=== PATIENT | female | born 1950 | race Caucasian/White ===

== ENCOUNTER 2022-12-11 16:14 | Emergency (ER) | payer MEDICARE, SELFPAY ==
--- NOTE | ~2022-12-11 | XR_ITS ---
EXAMINATION: CR CHEST CLINICAL INFORMATION: Chest pain. COMPARISON: None available. TECHNIQUE: AP upright and lateral views of the chest were obtained. FINDINGS: EKG leads overlie the chest. The cardiomediastinal silhouette is enlarged. Lungs bilaterally are symmetrically expanded and clear. No focal consolidation, effusion or pneumothorax is seen. Bony structures are unremarkable. Right upper quadrant shakeel and place from prior cholecystectomy. XR/XR chest 2V IMPRESSION: Enlarged cardiomediastinal silhouette. No acute pulmonary process.
--- NOTE | ~2022-12-11 | CT_ITS ---
EXAMINATION: CT HEAD WITHOUT CONTRAST CLINICAL INFORMATION: New visual hallucinations. Headache. COMPARISON: None available. TECHNIQUE: Contiguous axial imaging was performed from the skull base to vertex without intravenous administration of contrast. This CT examination was performed using dose optimization techniques as appropriate, variously including the following: *Automated exposure control *Adjustment of mA and/or kV according to patient size (this includes techniques or standardized protocols for targeted exams where dose is matched to indication/reason for exam; i.e. extremities or head) *Use of iterative reconstruction technique DLP: 630 mGy-cm FINDINGS: There is no evidence of acute intracranial hemorrhage or territorial infarction. No abnormal mass-effect or midline shift is seen. Patterson to white matter differentiation is well preserved. No extra-axial fluid collections are identified. The ventricles and sulci are mildly enlarged. There is mild periventricular and deep white matter low-attenuation seen, consistent with ischemic small vessel disease. There is no abnormal attenuation within the brain parenchyma. The osseous structures and soft tissues are normal. The patient is status post bilateral ocular lens extractions and lens replacements. Atherosclerotic calcifications of the vertebral arteries and carotid siphons noted. The mastoid air cells and visualized portions of the paranasal sinuses are well-aerated. CT/CT head/brain wo IV con IMPRESSION: 1. No acute intracranial pathology. 2. Findings of mild ischemic small vessel disease.
--- NOTE | 2022-12-11 16:21 | ED.GENADULT ---
HPI - General Adult General Chief complaint: Chest Pain Stated complaint: chest [id number],headache,ran out of meds Time Seen by Provider: 12/11/22 16:20 Source: patient and EMS Mode of arrival: EMS Limitations: no limitations History of Present Illness HPI narrative: Patient is a 72 year old assigned female at with a history of anxiety presenting to the emergency department today with chest pain, anxiety, and a headache. Patient states that she is usually on 1mg of Clonazepam twice a day however, she ran out 2 weeks ago. Patient states that she just moved here from [place] and has not been able to get her Clonazepam prescribed here. Patient denies any dizziness, lightheadedness, abdominal pain, nausea, vomiting, fever, chills, blurry vision, double vision, loss of vision, difficulty breathing, shortness of breath, back pain, night sweats, pain with urination, increased urinary frequency, increased urinary urgency, blood in her urine or stool, syncope or a near syncopal episode, recent trauma or falls, bowel incontinence, bladder incontinence, bowel retention, bladder retention, or any other complaints at this time. Onset (ago): day(s) Location: head and chest Severity: mild Severity scale (1-10): 3 Relieving factors: none Exacerbating factors: none Associated symptoms: chest pain Treatments prior to arrival: none Related Data Allergies Allergy/AdvReac Type Severity Reaction Status Date / Time Unable to Assess Allergy Unverified 12/11/22 16:28 Review of Systems Constitutional: Constitutional: Reports no additional constitutional complaints, Denies chills, Denies fever(s), Reports headache(s) and Denies night sweats Eyes: Eyes: Reports no additional eye complaints, Denies blurry vision, Denies change in vision, Denies diplopia, Denies eye discharge, Denies loss of vision and Denies eye pain ENT: Denies dizziness and Reports headache(s) Cardiovascular: Cardiovascular: Reports no additional cardiovascular complaints, Reports chest pain, Denies lightheadedness, Denies Loss of Consciousness and Denies dyspnea Respiratory: Respiratory: Reports no additional respiratory complaints and Denies dyspnea Gastrointestinal: Gastrointestinal: Reports no additional gastrointestinal complaints, Denies abdominal pain, Denies melena, Denies hematochezia, Denies change in bowel habits and Denies change in stool character Genitourinary: Genitourinary: Denies hematuria, Denies urinary frequency, Denies dysuria, Denies urinary incontinence, Denies urinary hesitancy and Denies urinary urgency Musculoskeletal: Musculoskeletal: Reports no additional musculoskeletal complaints, Denies numbness and Denies tingling Neurologic: Denies dizziness, Reports headache(s), Denies loss of vision, Denies numbness and Denies tingling Psychiatric: Psychiatric: Reports no additional psychiatric complaints and Reports anxiety Endocrine: Endocrine: Reports no additional endocrine complaints Hematologic/Lymphatic: Hematologic/Lymphatic: Reports no additional hematologic/lymphatic complaints Allergic/Immunologic: Allergic/Immunologic: Reports no additional allergic/immunologic complaints [facility] Past Medical History Attestation statement: The following information was validated with the patient. Source: old records reviewed and nursing notes reviewed Social History Social History Alcohol intake: former Smoked in Last 30 Days: No Use of substances other than those prescribed or required for medical reasons: No Advance Directives: Yes Advance Directives Information Provided: No Advance Directives on File: No Physical Exam ED Vital Signs: Vital Signs - 24 hr 12/11/22 16:26 12/11/22 16:29 12/11/22 18:39 Temperature 99.4 F 99.4 F 99.0 F Pulse Rate 12 L 78 78 Respiratory Rate 13 13 11 L Blood Pressure 160/76 H 160/76 H 123/68 Pulse Oximetry 95 93 97 Oxygen Delivery Method Room Air Room Air Room Air BMI result Body Mass Index 25.9 Const General: cooperative, no acute distress, alert and awake Nutritional Appearance: well nourished Orientation/consciousness: patient oriented x3 Limitations: no limitations [facility] Head: Yes normal to inspection and Yes atraumatic Ears: hearing grossly normal bilaterally and external ears normal General nose exam: Normal external nose present, no nasal discharge noted and no epistaxis Face and sinus: Yes normal facial exam, No abrasion and No laceration Mouth: Normal oral and palatal mucosa present, no drooling and no muffled voice Eyes General: appearance normal, both eyes and all related structures Periorbital: periorbital findings normal Eyelids: Yes eyelids normal Conjunctivae: conjunctivae normal Pupils: Equal, round and reactive pupils present EOM: EOMs intact bilaterally Neck Neck: Yes normal visual inspection, Yes full ROM and Yes no lymphadenopathy Chest Chest palpation & inspection: normal inspection of the chest Resp Effort & Inspection: normal respiratory effort and able to speak in complete sentences Auscultation: clear to auscultation bilaterally Cardio Rate: regular rate Rhythm: regular rhythm GI Inspection: Yes normal to inspection Palpation (GI): Soft to palpation, not firm, nontender, no guarding and not rigid Neuro General: patient oriented x3 and moves all extremities Cranial nerves: Yes Equal, round and reactive pupils present Cognition (Neuro): normal cognition Motor exam (neuro): 5/5 motor strength present throughout Sensory Exam: Normal double simultaneous stimulation for sensation Coordination: [id number] test normal Extrem General: Yes normal to inspection, Yes full ROM and Yes capillary refill normal Psych Appearance: grossly normal Mental Status: mental status grossly normal Affect: normal affect Attitude: cooperative Thought process: Normal thought process present Thought content: Normal thought content present Insight: Good insight present (Psych) Medications Administered Discontinued Medications Generic Name Dose Route Start Last Admin Trade Name Freq PRN Reason Stop Dose Admin Lorazepam 1 mg 12/11/22 16:28 12/11/22 17:00 Lorazepam 1 Mg Tablet PO 12/11/22 16:29 1 mg ONCE ONE Administration Medical Decision Making Medical Decision Making [facility] Narrative: Patient is a 72 year old assigned female at with a history of anxiety presenting to the emergency department today with chest pain, anxiety, and a headache. Patient's physical exam was unremarkable. Patient's blood work was unremarkable. Patient's EKG was unremarkable. Patient's chest x-ray and head CT showed no acute process. I explained my physical exam findings as well as all test results to the patient. I answered all questions asked by the patient. Patient received 1mg of Ativan which she stated helped her symptoms significantly. I stressed the importance of the patient taking her medication as prescribed. I stressed the importance of the patient following up with her primary care provider and a psychiatrist. I stressed the importance of the patient returning to the emergency department immediately if her symptoms were to worsen or if she were to develop any dizziness, shortness of breath, difficulty breathing, chest pain, blurry vision, loss of vision, nausea, vomiting, abdominal pain, fever, chills, back pain, or any other complaints. Patient verbalized agreement and understanding with this treatment plan and discharge. Differential Diagnosis Differential Diagnoses: The differential diagnosis associated with the presentation includes Anxiety STEMI NSTEMI Migraine Cluster headache Tension headache Admission/Observation Consideration of admission/observation: Escalation of care including admission/observation considered Patient would have been admitted to the hospital had her work up had any findings where hospital admission was appropriate and her clinical presentation warranted hospital admission. Lab Data MDM Lab Attestation statement: I reviewed the patient's lab results. My interpretation of these studies and their corresponding values is that they are grossly normal. 12/11/22 16:57 12/11/22 16:57 Labs: Lab Results 12/11/22 12/11/22 12/11/22 Range/Units 16:57 16:57 16:57 WBC 8.5 (4.8-10.8) X10*3/uL RBC 4.14 L (4.20-5.50) X10*6/uL Hgb 12.2 (12.0-16.0) g/dl Hct 35.9 L (37.0-47.0) % MCV 86.7 (80.0-98.0) fL MCH 29.5 (27.0-33.0) pg MCHC 34.0 (31.0-35.0) g/dl RDW 13.4 (11.0-16.0) % Plt Count 88 L (160-400) X10*3/uL MPV 12.6 H (9.4-12.3) fL Immature Gran % (Auto) 0.9 H (0.0-0.4) % Neut % (Auto) 66.9 (45-73) % Lymph % (Auto) 22.4 (20-40) % Ralls % (Auto) 8.1 (2-11) % Eos % (Auto) 1.3 (0-4) % Baso % (Auto) 0.4 (0-2) % Lymph # (Auto) 1.9 (1.2-4.9) X10*3/uL Ralls # (Auto) 0.7 (0.1-1.2) X10*3/uL Eos # (Auto) 0.1 (0.0-0.4) X10*3/uL Baso # (Auto) 0.0 (0.0-0.2) X10*3/uL Abs Immat Gran (auto) 0.08 H (0.00-0.03) X10*3/uL Absolute Neuts (auto) 5.7 (2.0-8.3) x10*3/uL Absolute Nucleated RBC 0.000 (0.0-0.012) X10*3/uL Nucleated RBC % (auto) 0.0 (0.0-0.2) /100WBC Sodium 143 (135-145) mmol/L Potassium 3.3 (3.3-5.1) mmol/L Chloride 106 (96-108) mmol/L Carbon Dioxide 28 (22-29) mmol/L Anion Gap 12 (12-20) BUN 9 (9-16) mg/dL Creatinine 0.78 (0.5-1.4) mg/dL Estim Creat Clear Calc 62.8 Estimated GFR > 60 Random Glucose 114 (60-115) mg/dL Calcium 9.5 (8.4-10.2) mg/dL Magnesium 1.8 (1.6-2.6) mg/dL Total Bilirubin 0.9 (0.0-1.0) mg/dL AST 20 (5-31) U/L ALT 16 (0-31) U/L Alkaline Phosphatase 128 H (39-117) U/L Troponin I High Sens 3.5 (<3.5-17.0) ng/L Total Protein 6.7 (6.5-8.0) g/dL Albumin 3.8 (3.5-5.0) g/dL COVID-19 (ANU) (Negative) COVID-19 Clin Com 12/11/22 12/11/22 Range/Units 16:57 18:39 WBC (4.8-10.8) X10*3/uL RBC (4.20-5.50) X10*6/uL Hgb (12.0-16.0) g/dl Hct (37.0-47.0) % MCV (80.0-98.0) fL MCH (27.0-33.0) pg MCHC (31.0-35.0) g/dl RDW (11.0-16.0) % Plt Count (160-400) X10*3/uL MPV (9.4-12.3) fL Immature Gran % (Auto) (0.0-0.4) % Neut % (Auto) (45-73) % Lymph % (Auto) (20-40) % Ralls % (Auto) (2-11) % Eos % (Auto) (0-4) % Baso % (Auto) (0-2) % Lymph # (Auto) (1.2-4.9) X10*3/uL Ralls # (Auto) (0.1-1.2) X10*3/uL Eos # (Auto) (0.0-0.4) X10*3/uL Baso # (Auto) (0.0-0.2) X10*3/uL Abs Immat Gran (auto) (0.00-0.03) X10*3/uL Absolute Neuts (auto) (2.0-8.3) x10*3/uL Absolute Nucleated RBC (0.0-0.012) X10*3/uL Nucleated RBC % (auto) (0.0-0.2) /100WBC Sodium (135-145) mmol/L Potassium (3.3-5.1) mmol/L Chloride (96-108) mmol/L Carbon Dioxide (22-29) mmol/L Anion Gap (12-20) BUN (9-16) mg/dL Creatinine (0.5-1.4) mg/dL Estim Creat Clear Calc Estimated GFR Random Glucose (60-115) mg/dL Calcium (8.4-10.2) mg/dL Magnesium (1.6-2.6) mg/dL Total Bilirubin (0.0-1.0) mg/dL AST (5-31) U/L ALT (0-31) U/L Alkaline Phosphatase (39-117) U/L Troponin I High Sens 3.3 (<3.5-17.0) ng/L Total Protein (6.5-8.0) g/dL Albumin (3.5-5.0) g/dL COVID-19 (ANU) Negative (Negative) COVID-19 Clin Com See Note Independent Interpretation I performed an independent interpretation of an: EKG, Plain X-Ray and CT Scan Interpretation: My interpretation is in agreement with the radiologist's impression of these imaging studies. EXAMINATION: CT HEAD WITHOUT CONTRAST CLINICAL INFORMATION: New visual hallucinations. Headache.? COMPARISON: None available. TECHNIQUE: Contiguous axial imaging was performed from the skull base to vertex without intravenous administration of contrast. This CT examination was performed using dose optimization techniques as appropriate, variously including the following: *Automated exposure control *Adjustment of mA and/or kV according to patient size (this includes techniques or standardized protocols for targeted exams where dose is matched to indication/reason for exam; i.e. extremities or head) *Use of iterative reconstruction technique DLP: 630 mGy-cm FINDINGS: There is no evidence of acute intracranial hemorrhage or territorial infarction. No abnormal mass-effect or midline shift is seen. Patterson to white matter differentiation is well preserved. No extra-axial fluid collections are identified. The ventricles and sulci are mildly enlarged. There is mild periventricular and deep white matter low-attenuation seen, consistent with ischemic small vessel disease. There is no abnormal attenuation within the brain parenchyma. The osseous structures and soft tissues are normal. The patient is status post bilateral ocular lens extractions and lens replacements. Atherosclerotic calcifications of the vertebral arteries and carotid siphons noted. The mastoid air cells and visualized portions of the paranasal sinuses are well-aerated. CT/CT head/brain wo IV con IMPRESSION: 1.? No acute intracranial pathology. 2.? Findings of mild ischemic small vessel disease. Dictated By: Indy Snyder MD Signed By: Electronically signed by Indy Snyder MD 12/11/22 1707 EXAMINATION: CR CHEST CLINICAL INFORMATION: Chest pain. COMPARISON: None available. TECHNIQUE: AP upright and lateral views of the chest were obtained. FINDINGS: EKG leads overlie the chest. The cardiomediastinal silhouette is enlarged. Lungs bilaterally are symmetrically expanded and clear. No focal consolidation, effusion or pneumothorax is seen. Bony structures are unremarkable. Right upper quadrant shakeel and place from prior cholecystectomy. XR/XR chest 2V IMPRESSION: Enlarged cardiomediastinal silhouette. No acute pulmonary process. Dictated By: Indy Snyder MD Signed By: Electronically signed by Indy Snyder MD 12/11/22 1657 Vent. Rate: 076 BPM ? ? Atrial Rate: 076 BPM P-R Int: 156 ms? QRS Dur: 082 ms QT Int: 404 ms ? ? ? P-R-T Axes: 014 025 058 degrees QTc Int: 454 ms ? Normal sinus rhythm Nonspecific T wave abnormality Abnormal ECG No previous ECGs available ? DD/ [id number] Radiology Impression Discussion of test interpretation with radiology: I have reviewed the radiologist's reading. Independent Historian Clinical information obtained from an independent historian. History obtained from or confirmed by: EMS (EMS provided additional history and confirmed the history provided by the patient.) Chronic Conditions Patient?s care impacted by: Other (anxiety) Scores Heart Score History: -0- slightly suspicious ECG: -0- normal Age: -2- > or = 65 Risk factory: -1- 1 or 2 risk factors Troponin: -0- < or = normal limit Score: 3 Risk: 1.7% Discharge Plan Discharge Clinical Impression: Atypical chest pain, Anxiety Patient Disposition: Home, Self-Care Instructions: Chest Pain (DC), Anxiety (ED) Additional Instructions: Follow up with your primary care provider. Return to the emergency department immediately if your symptoms worsen or if you develop any dizziness, shortness of breath, difficulty breathing, chest pain, blurry vision, loss of vision, nausea, vomiting, abdominal pain, fever, chills, back pain, or any other complaints. [facility] at [facility]: [address] [place] [address] [id number] Walk in hours from 10am - 12pm Open from 10am - 12pm [facility] Crisis Services: [address] [place] [address] Walk in hours from 10am - 12pm Open 13/12 [facility]: [address] [place] [id number] [address] [place] [id number] Hours: M-F 8am to 8pm Tuesday and Tuesday 9am to 5pm Referrals: Shelby Aranda MD [Primary Care Provider] - Interventions: ED Discharge Assessment Last Done: 12/11/22 20:00 Discharge Date/Time: 12/11/22 20:01 Print Language: Namibian
[2022-12-11 16:26] VITALS: BP 147/71; BP 160/76; PULSE 12; RESP 13; TEMP 37.4; O2SAT 95; O2SAT 97; BMI 25.9
--- NOTE | 2022-12-11 16:28 | ECG_ITS ---
Test Reason : CHEST PAIN Blood Pressure : / mmHG Vent. Rate : 076 BPM Atrial Rate : 076 BPM P-R Int : 156 ms QRS Dur : 082 ms QT Int : 404 ms P-R-T Axes : 014 025 058 degrees QTc Int : 454 ms Normal sinus rhythm Nonspecific T wave abnormality Abnormal ECG No previous ECGs available Referred By: Nicky Mahajan Electronically Signed By:Jose Luis Leija
[2022-12-11 16:29] VITALS: BP 147/71; BP 160/76; PULSE 78; PULSE 89; RESP 13; TEMP 37.4; O2SAT 93; O2SAT 97; BMI 25.9
[2022-12-11] MEDS: LORazepam 1 MG TABLET PO (17:00)
[2022-12-11 17:01] LABS: MANUAL DIFF FLAG NO
[2022-12-11 17:15] LABS: Alanine Aminotransferase 16 U/L (0-31); Albumin Level 3.8 g/dL (3.5-5.0); Alkaline Phosphatase 128 U/L (39-117); Anion Gap 12 (12-20); Aspartate Amino Transferase 20 U/L (5-31); Bilirubin Total 0.9 mg/dL (0.0-1.0); Blood Urea Nitrogen 9 mg/dL (9-16); COVID-19 Test Negative (Negative); Calcium 9.5 mg/dL (8.4-10.2); Carbon Dioxide 28 mmol/L (22-29); Chloride 106 mmol/L (96-108); Creatinine Clr Calc Pharmacy 62.8; Estimated Glomerular Filt Rate > 60; Glucose Random 114 mg/dL (60-115); IDNOW Serial# 9DB6401D; Magnesium 1.8 mg/dL (1.6-2.6); Potassium 3.3 mmol/L (3.3-5.1); Sodium 143 mmol/L (135-145); Total Protein 6.7 g/dL (6.5-8.0)
[2022-12-11 17:22] LABS: Troponin-I High Sensitivity 3.5 ng/L (<3.5-17.0)
[2022-12-11 17:24] LABS: Basophils Percent Auto 0.4 % (0-2); Eosinophils Absolute Auto 0.1 X10*3/uL (0.0-0.4); Eosinophils Percent Auto 1.3 % (0-4); Hematocrit 35.9 % (37.0-47.0); Hemoglobin 12.2 g/dl (12.0-16.0); Imm Gran Abs Auto 0.08 X10*3/uL (0.00-0.03); Imm Gran Pct Auto 0.9 % (0.0-0.4); Lymphocytes Absolute Auto 1.9 X10*3/uL (1.2-4.9); Lymphocytes Percent Auto 22.4 % (20-40); Mean Corpuscular Hemoglobin 29.5 pg (27.0-33.0); Mean Corpuscular Volume 86.7 fL (80.0-98.0); Mean Platelet Volume 12.6 fL (9.4-12.3); Monocytes Absolute Auto 0.7 X10*3/uL (0.1-1.2); Monocytes Percent Auto 8.1 % (2-11); Neutrophils Absolute Auto 5.7 x10*3/uL (2.0-8.3); Neutrophils Percent Auto 66.9 % (45-73); Red Blood Count 4.14 X10*6/uL (4.20-5.50); Red Cell Distribution Width 13.4 % (11.0-16.0); White Blood Count 8.5 X10*3/uL (4.8-10.8)
[2022-12-11 17:30] LABS: Platelet Count 88 X10*3/uL (160-400)
[2022-12-11 18:39] VITALS: BP 123/68; PULSE 78; RESP 11; TEMP 37.2; O2SAT 97
[2022-12-11 19:04] LABS: Troponin-I High Sensitivity 3.3 ng/L (<3.5-17.0)
== END 2022-12-11 20:01 | disposition home or self-care (01) ==
PROVIDERS: Physician Assistant Medical; Emergency Provider Emergency Medicine; PCP Family Medicine
DX: R07.89 Other chest pain (principal); R51.9 Headache, unspecified; F41.9 Anxiety disorder, unspecified; R44.1 Visual hallucinations; Z20.822 Contact with and (suspected) exposure to COVID-19
CPT/HCPCS: 36415; 70450; 71046; 80053; 83735; 84484; 85025; 87635; 93005; 99284

== ENCOUNTER → 2022-12-11 16:28 | Outpatient (BNV) | payer MEDICARE, SELFPAY | PROVIDERS: Emergency Provider Emergency Medicine; PCP Family Medicine; Visit Provider Internal Medicine Cardiovascular Disease | DX: R07.9 Chest pain, unspecified (principal) | CPT/HCPCS: 93010 ==

== ENCOUNTER 2023-02-25 13:31 | Outpatient (REF) | payer MEDICARE, SELFPAY ==
--- NOTE | ~2023-02-25 | CT_ITS ---
EXAMINATION: CT ABDOMEN AND PELVIS WITH CONTRAST CLINICAL INFORMATION: Gastroesophageal reflux disease (GERD) with esophagitis and nausea. COMPARISON: None available. TECHNIQUE: Multidetector volumetric images were obtained from the superior aspect of the liver through the pubic symphysis following administration 85 mL of Omnipaque 350 intravenous contrast. Sagittal and coronal reformatted images were obtained on the technologist's workstation. Oral contrast: No This CT examination was performed using dose optimization techniques as appropriate, variously including the following: *Automated exposure control *Adjustment of mA and/or kV according to patient size (this includes techniques or standardized protocols for targeted exams where dose is matched to indication/reason for exam; i.e. extremities or head) *Use of iterative reconstruction technique DLP: 377 mGy-cm FINDINGS: LUNG BASES: The visualized lung bases are unremarkable. LIVER, GALLBLADDER, AND BILIARY TREE: The liver is normal in size, shape, and attenuation. No focal hepatic lesion or biliary ductal dilatation is present. Status post cholecystectomy. PANCREAS: Unremarkable. SPLEEN: Spleen is mildly enlarged at just over 13 cm. ADRENAL GLANDS: Unremarkable. KIDNEYS AND URETERS: The kidneys are normal in size, shape, and attenuation. No hydronephrosis, hydroureter, or calculi seen. No perinephric stranding. BLADDER: There is slight asymmetric bladder wall thickening most prominent anteriorly. GASTROINTESTINAL TRACT: A small hiatal hernia is present. The small and large bowel are unremarkable. The appendix is unremarkable. ABDOMINAL WALL: No significant hernia is appreciated. Tiny periumbilical hernia seen containing only fat. LYMPH NODES: No retroperitoneal lymphadenopathy. VASCULAR: Unremarkable. PELVIC VISCERA: There is a rounded hyperenhancing mass seen in the lower uterine segment measuring about a centimeter in size (3:70 and 8:66) that could be a uterine fibroid. Endovaginal ultrasound for evaluation. OSSEOUS STRUCTURES: There is mild biconvex thoracolumbar scoliosis with [id number] degenerative changes present throughout the spine most marked at L3-L4 and L4-L5. CT/CT abdomen pelvis w IV con IMPRESSION: A cause for the patient's esophagitis and nausea has not been found. A small hiatal hernia is present. Incidental note made of mild splenomegaly, cholecystectomy possible uterine fibroid. Endovaginal ultrasound is recommended for further evaluation. Other incidental findings as described above including slight asymmetric bladder wall thickening. This could be secondary to cystitis. Please correlate with urinalysis. Fleischner guidelines were followed.
[2023-03-02 11:02] LABS: Creatinine POC 0.8 mg/dL (0.5-1.4); GFR POC > 60
== END 2023-02-25 13:32 | disposition home or self-care (01) ==
LOC: HO.CT 13:31
PROVIDERS: PCP Family Medicine; Visit Provider Family Medicine
DX: K21.9 Gastro-esophageal reflux disease without esophagitis (principal); R11.0 Nausea
CPT/HCPCS: 74177; 82565; Q9967

== ENCOUNTER 2023-05-22 13:23 | Emergency (ER) | payer MEDICARE, SELFPAY ==
[2023-05-22 14:27] VITALS: BP 137/78; PULSE 90; RESP 18; TEMP 36.8; O2SAT 97; BMI 23.7
--- NOTE | 2023-05-22 14:29 | ED.DENTAL ---
HPI - Dental/Oral General Chief complaint: General Medical Stated complaint: Oral surgery 1wk ago puss coming from gums Time Seen by Provider: 05/22/23 16:11 Source: patient Mode of arrival: ambulatory Limitations: no limitations History of Present Illness HPI Narrative: Patient is a 73 year old assigned female at with a history of recent dental surgery presenting to the emergency department today with dental swelling, cough, and feeling generally unwell. Patient states that she had 5 teeth extracted with 4 implants placed on 05/06/2023 and since has had swelling and discharge in her mouth. Patient states that she was on one antibiotic but it wasn't working so her dentist switched her to another. Patient states that she is concerned the infection is in her blood because she is feeling more fatigued lately. Patient denies any dizziness, lightheadedness, abdominal pain, nausea, vomiting, fever, chills, blurry vision, double vision, loss of vision, chest pain, difficulty breathing, shortness of breath, back pain, night sweats, pain with urination, increased urinary frequency, increased urinary urgency, blood in her urine or stool, syncope or a near syncopal episode, bowel incontinence, bladder incontinence, bowel retention, bladder retention, or any other complaints at this time. Onset (ago): day(s) Exacerbating factors: nothing Treatment prior to arrival: other (antibiotic) Related Data Allergies Allergy/AdvReac Type Severity Reaction Status Date / Time heparin Allergy Unknown Unknown Verified 05/22/23 14:27 Penicillins Allergy Unknown Unknown Verified 05/22/23 14:27 Review of Systems Constitutional: Constitutional: Reports no additional constitutional complaints, Denies chills, Reports fatigue, Denies fever(s) and Denies night sweats Eyes: Eyes: Reports no additional eye complaints, Denies blurry vision, Denies change in vision, Denies diplopia, Denies eye discharge, Denies loss of vision and Denies eye pain ENT: Denies dizziness and Reports mouth pain Cardiovascular: Cardiovascular: Reports no additional cardiovascular complaints, Denies chest pain, Denies lightheadedness, Denies Loss of Consciousness and Denies dyspnea Respiratory: Respiratory: Reports no additional respiratory complaints and Denies dyspnea Gastrointestinal: Gastrointestinal: Reports no additional gastrointestinal complaints, Denies abdominal pain, Denies melena, Denies hematochezia, Denies change in bowel habits and Denies change in stool character Genitourinary: Genitourinary: Denies hematuria, Denies urinary frequency, Denies dysuria, Denies urinary incontinence, Denies urinary hesitancy and Denies urinary urgency Musculoskeletal: Musculoskeletal: Reports no additional musculoskeletal complaints, Denies numbness and Denies tingling Neurologic: Denies dizziness, Denies loss of vision, Denies numbness and Denies tingling Psychiatric: Psychiatric: Reports no additional psychiatric complaints Endocrine: Endocrine: Reports no additional endocrine complaints and Reports fatigue Hematologic/Lymphatic: Hematologic/Lymphatic: Reports no additional hematologic/lymphatic complaints Allergic/Immunologic: Allergic/Immunologic: Reports no additional allergic/immunologic complaints PMFSH Past Medical History Attestation statement: The following information was validated with the patient. Source: old records reviewed and nursing notes reviewed Social History Social History Alcohol intake: former Advance Directives: No Advance Directives Information Provided: No Physical Exam Vital Signs: Vital Signs: Last Vital Signs Temp 98.3 F 05/22/23 14:27 Pulse 90 05/22/23 14:27 Resp 18 05/22/23 14:27 BP 137/78 05/22/23 14:27 Pulse Ox 97 05/22/23 14:27 O2 Del Method Room Air 05/22/23 14:27 BMI result Body Mass Index 23.7 Const: General: cooperative, no acute distress, alert and awake Nutritional Appearance: well nourished Orientation/consciousness: patient oriented x3 Limitations: no limitations HEENT: Head: Yes normal to inspection and Yes atraumatic Ears: hearing grossly normal bilaterally and external ears normal General nose exam: Normal external nose present, no nasal discharge noted and no epistaxis Face and sinus: Yes normal facial exam, No abrasion and No laceration Mouth: Normal oral and palatal mucosa present, no drooling and no muffled voice Teeth and gingiva: other (multiple missing teeth, open area just above #8 with minimal clear draining) Eyes: General: appearance normal, both eyes and all related structures Periorbital: periorbital findings normal Eyelids: Yes eyelids normal Conjunctivae: conjunctivae normal Pupils: Equal, round and reactive pupils present EOM: EOMs intact bilaterally Neck: Neck: Yes normal visual inspection, Yes full ROM and Yes no lymphadenopathy Chest: Chest palpation & inspection: normal inspection of the chest Resp: Effort & Inspection: normal respiratory effort and able to speak in complete sentences GI: Inspection: Yes normal to inspection Neuro: General: patient oriented x3 and moves all extremities Cranial nerves: Yes Equal, round and reactive pupils present Cognition (Neuro): normal cognition Motor exam (neuro): 5/5 motor strength present throughout Sensory Exam: Normal double simultaneous stimulation for sensation Coordination: [id number] test normal Extrem: General: Yes normal to inspection, Yes full ROM and Yes capillary refill normal Psych: Appearance: grossly normal Mental Status: mental status grossly normal Affect: normal affect Attitude: cooperative Thought process: Normal thought process present Thought content: Normal thought content present Insight: Good insight present (Psych) Course Course Course Narrative: This is a rapid medical exam: Additional HPI, ROS, PE not included below will be deferred to primary provider. Patient is a 73-year-old female with history of T2DM presenting to the ED with complaint of purulent drainage from mouth. Recent significant dental work done on 05/06, had 5 teeth extracted and 4 dental implants placed to upper jaw. Took 7 days of Clindamycin, states developed facial swelling immediately after finishing that course, went back to oral surgeon on Tuesday, and was started on Cipro 500mg BID at that time. Also complains of productive cough. Only using ibuprofen for pain. Today had chills. Plan: labs, cultures Medical Decision Making Medical Decision Making MDM Narrative: Patient is a 73 year old assigned female at with a history of recent dental surgery presenting to the emergency department today with dental pain and feeling fatigued. Patient's physical exam was as noted in the physical exam portion of this note. Patient's previously abscessed area is actively draining clear discharge with no additional fluctance. Patient's blood work showed an elevated ESR at 69 but was otherwise unremarkable. Patient's COVID-19 test was positive. Patient's influenza and RSV tests were negative. I explained my physical exam findings as well as all test results to the patient. I answered all questions asked by the patient. I stressed the importance of the patient taking her medication as prescribed. I stressed the importance of the patient following up with her primary care provider amd her dentist. I stressed the importance of the patient returning to the emergency department immediately if her symptoms were to worsen or if she were to develop any dizziness, shortness of breath, difficulty breathing, chest pain, blurry vision, loss of vision, nausea, vomiting, abdominal pain, fever, chills, back pain, or any other complaints. Patient verbalized agreement and understanding with this treatment plan and discharge. Differential Diagnosis Differential Diagnoses: The differential diagnosis associated with the presentation includes Dental abscess COVID-19 RSV Influenza Admission/Observation Consideration of admission/observation: Escalation of care including admission/observation considered Patient would have been admitted to the hospital had her work up had any findings where hospital admission was appropriate and her clinical presentation warranted hospital admission. Lab Data [facility] Lab Attestation statement: I reviewed the patient's lab results. My interpretation of these results are in the [facility] Rationale portion of this note. 05/22/23 16:00 05/22/23 16:00 Labs: Lab Results 05/22/23 05/22/23 Range/Units 16:00 16:18 WBC 7.0 (4.8-10.8) X10*3/uL RBC 3.99 L (4.20-5.50) X10*6/uL Hgb 12.1 (12.0-16.0) g/dl Hct 35.5 L (37.0-47.0) % MCV 89.0 (80.0-98.0) fL MCH 30.3 (27.0-33.0) pg MCHC 34.1 (31.0-35.0) g/dl RDW 14.0 (11.0-16.0) % Plt Count 170 D (160-400) X10*3/uL MPV 13.2 H (9.4-12.3) fL Immature Gran % (Auto) 0.4 (0.0-0.4) % Neut % (Auto) 77.3 H (45-73) % Lymph % (Auto) 11.8 L (20-40) % [place] % (Auto) 8.3 (2-11) % Eos % (Auto) 1.9 (0-4) % Baso % (Auto) 0.3 (0-2) % Lymph # (Auto) 0.8 L (1.2-4.9) X10*3/uL [place] # (Auto) 0.6 (0.1-1.2) X10*3/uL Eos # (Auto) 0.1 (0.0-0.4) X10*3/uL Baso # (Auto) 0.0 (0.0-0.2) X10*3/uL Abs Immat Gran (auto) 0.03 (0.00-0.03) X10*3/uL Absolute Neuts (auto) 5.4 (2.0-8.3) x10*3/uL Absolute Nucleated RBC 0.000 (0.0-0.012) X10*3/uL Nucleated RBC % (auto) 0.0 (0.0-0.2) /100WBC Smear Tech's Comments VERIFIED ESR 69 H (0-20) MM/HR Sodium 138 (135-145) mmol/L Potassium 3.8 (3.3-5.1) mmol/L Chloride 107 (96-108) mmol/L Carbon Dioxide 22 (22-29) mmol/L Anion Gap 13 (12-20) BUN 21 H (9-16) mg/dL Creatinine 0.84 (0.5-1.4) mg/dL Estim Creat Clear Calc 52.3 Estimated GFR > 60 Random Glucose 106 (60-115) mg/dL Lactic Acid 0.8 (0.5-2.0) mmol/L Calcium 9.5 (8.4-10.2) mg/dL C-Reactive Protein 0.39 (< or = 0.50) mg/dL Influenza Type A (PCR) NEGATIVE (Negative) Influenza Type B (PCR) NEGATIVE (Negative) RSV RNA Qual (PCR) NEGATIVE (Negative) SARS-CoV-2 RNA (RT-PCR) POSITIVE A (Negative) Prescription Management I considered prescription management with: Antiviral (patient is not a paxlovid candidate) and Antibiotic (patient already prescribed appropriate antibiotic by dentist.) Discharge Plan Discharge Clinical Impression: Abscess, dental, COVID-19 Patient Disposition: Home, Self-Care Instructions: Dental Abscess (ED), COVID-19 (Coronavirus Disease 2019) (ED) Additional Instructions: Follow up with your primary care provider and your dentist. Your abscess is draining like it is supposed to. Do NOT swallow what comes out of it. Please continue using the rinse and antibiotic prescribed by your dentist. Return to the emergency department immediately if your symptoms worsen or if you develop any dizziness, shortness of breath, difficulty breathing, chest pain, blurry vision, loss of vision, nausea, vomiting, abdominal pain, fever, chills, back pain, or any other complaints. Referrals: Shelby Aranda MD [Primary Care Provider] - Print Language: Hungarian
[2023-05-22 16:20] LABS: Lactic Acid 0.8 mmol/L (0.5-2.0)
[2023-05-22 16:21] LABS: Basophils Percent Auto 0.3 % (0-2); Hematocrit 35.5 % (37.0-47.0); Imm Gran Abs Auto 0.03 X10*3/uL (0.00-0.03); Imm Gran Pct Auto 0.4 % (0.0-0.4); MANUAL DIFF FLAG SCAN; Red Blood Count 3.99 X10*6/uL (4.20-5.50); SCAN SMEAR FLAG 1
[2023-05-22 16:22] LABS: Eosinophils Absolute Auto 0.1 X10*3/uL (0.0-0.4); Eosinophils Percent Auto 1.9 % (0-4); Hemoglobin 12.1 g/dl (12.0-16.0); Lymphocytes Absolute Auto 0.8 X10*3/uL (1.2-4.9); Lymphocytes Percent Auto 11.8 % (20-40); Mean Corpuscular HGB Conc 34.1 g/dl (31.0-35.0); Mean Corpuscular Hemoglobin 30.3 pg (27.0-33.0); Mean Platelet Volume 13.2 fL (9.4-12.3); Monocytes Absolute Auto 0.6 X10*3/uL (0.1-1.2); Monocytes Percent Auto 8.3 % (2-11); Neutrophils Absolute Auto 5.4 x10*3/uL (2.0-8.3); Neutrophils Percent Auto 77.3 % (45-73); Platelet Count 170 X10*3/uL (160-400)
[2023-05-22 16:23] LABS: Anion Gap 13 (12-20); Blood Urea Nitrogen 21 mg/dL (9-16); C Reactive Protein 0.39 mg/dL (< or = 0.50); Calcium 9.5 mg/dL (8.4-10.2); Carbon Dioxide 22 mmol/L (22-29); Chloride 107 mmol/L (96-108); Creatinine Clr Calc Pharmacy 52.3; Estimated Glomerular Filt Rate > 60; Glucose Random 106 mg/dL (60-115); Potassium 3.8 mmol/L (3.3-5.1); Sodium 138 mmol/L (135-145)
[2023-05-22 16:29] LABS: PLT ABN DIST 1
[2023-05-22 16:42] LABS: SLIDE REVIEW VERIFIED
[2023-05-22 17:09] LABS: Influenza A PCR NEGATIVE (Negative); Influenza B PCR NEGATIVE (Negative); Resp Syncy Virus RNA Qual PCR NEGATIVE (Negative); SARS COV2 PCR INHOUSE POSITIVE (Negative)
[2023-05-22 17:22] LABS: Erythrocyte Sedimentation Rate 69 MM/HR (0-20)
== END 2023-05-22 20:45 | disposition home or self-care (01) ==
PROVIDERS: Registered Nurse Emergency; Emergency Provider Emergency Medicine; PCP Family Medicine
DX: K04.7 Periapical abscess without sinus (principal); U07.1 COVID-19; E11.9 Type 2 diabetes mellitus without complications; Z88.0 Allergy status to penicillin
CPT/HCPCS: 0241U; 36415; 80048; 83605; 85025; 85652; 86140; 87040; 99282; 99283

== ENCOUNTER 2024-07-21 07:33 | Emergency (ER) | payer MEDICARE, SELFPAY ==
--- NOTE | ~2024-07-21 | CT_ITS ---
CLINICAL HISTORY: chest pain, elevated ddimer CT angiography chest with contrast. 3D Postprocessing. Comparison: None Findings: There is no heart strain by CT. There is no evidence of pulmonary embolism. Moderate atherosclerotic disease of the coronary arteries. No mediastinal adenopathy. Mild airway thickening. Mild mosaic attenuation. A few tiny nodules are noted, for example subpleural left lower lobe and left upper lobe both on axial image 58 The visualized upper abdomen is unremarkable. No acute osseous finding. Impression: No evidence of pulmonary embolism or heart strain by CT. Mild airway thickening and regions of air trapping. Correlation for mild bronchitis. There are 2 micro nodules identified, not meeting criteria to warrant follow-up. This document has been electronically signed by: Francisco Peraza MD on 07/21/2024 14:34:11
--- NOTE | ~2024-07-21 | XR_ITS ---
CLINICAL HISTORY: chest pain 1 view chest x-ray Comparison: CR/SR - XR CHEST 2V - 12/11/22 16:54 EDT Findings: No consolidation or effusion. Normal size heart. No acute fracture. IMPRESSION: 1. No acute findings. This document has been electronically signed by: Young Solorzano MD on 07/21/2024 08:47:03
--- NOTE | 2024-07-21 07:36 | ECG_ITS ---
Test Reason : CP Blood Pressure : */* mmHG Vent. Rate : 73 BPM Atrial Rate : 73 BPM P-R Int : 160 ms QRS Dur : 84 ms QT Int : 384 ms P-R-T Axes : -7 45 54 degrees QTcB Int : 423 ms Normal sinus rhythm Nonspecific ST abnormality Abnormal ECG When compared with ECG of 11-Dec-2022 16:39, Nonspecific T wave abnormality, improved in Anterior leads Referred By: Generic ED Physician Electronically Signed By: Jose Luis Leija
[2024-07-21 07:54] VITALS: BP 140/75; PULSE 75; RESP 18; TEMP 36.8; O2SAT 97; BMI 23.3
--- NOTE | 2024-07-21 08:07 | ED_ITS ---
HPI - Chest Pain General Chief Complaint: Chest Pain Stated Complaint: heavy chest feeling Time Seen by Provider: 07/21/24 07:59 Source: patient and family Mode of arrival: ambulatory Limitations: no limitations History of Present Illness ED Provider: BETZAIDA SANCHEZ narrative: 74 yo female with PMH of HLD s/p dental extraction and implants on 07/17 with dentist was on abx unknown name but they took her off due to rash and itching. She notes she woke up around 650am and felt like a child was sitting on her chest. She notes she is feeling better now but at the time it seemed like a lot and she also felt dyspnea. No nausea reported. She denies hx of issues with her heart and no hx of valvular issues. She was initially not started on abx but had facial swelling after so they put her on it along with medrol dosepak. She denies any cough or recent travel. She reports subj fevers the moment she came home. complaint: chest heaviness Onset (ago): day(s) (today 650am) Timing of current episode: now resolved Prior episodes: No Onset: during rest Pain location: substernal Pain radiation: none Quality: heaviness Relieving factors: nothing Exacerbating factors: nothing Context: recent illness and recent surgery Associated symptoms: dyspnea Treatment prior to arrival: none Related Data Allergies Allergy/AdvReac Type Severity Reaction Status Date / Time heparin Allergy Unknown Unknown Verified 07/21/24 07:57 Penicillins Allergy Unknown Unknown Verified 07/21/24 07:57 Review of Systems 2 Review of Systems: Constitutional : No Weight loss, No Fever, No Chills ENT/Mouth : No sore throat, No Rhinorrhea Eyes: No Eye Pain, No Swelling Cardiovascular : pos Chest Pain, pos SOB, no Dyspnea on Exertion, No Orthopnea, No Edema, No Palpitations Respiratory : No Cough, No Sputum Gastrointestinal : no Nausea, No Vomiting, No Diarrhea, No abdominal Pain, No Hematochezia, No Melena Genitourinary : No Dysuria, No Urinary Frequency Musculoskeletal : No joint pain, No Myalgias, No Joint Swelling Skin : No Skin Lesions, No rash Neuro : No Weakness, No Numbness, No Dizziness, No Headache All other systems reviewed and are negative PMFSH Past Medical History Attestation statement: The following information was validated with the patient. Source: old records reviewed Medical History Hyperlipidemia Social History Social History (Updated 07/21/24 @ 09:53 by Sulema Sanches DO) Alcohol intake: former Patient Tobacco Use Status: Tobacco use Unknown Advance Directives: No Advance Directives Information Provided: No Do you have a plan to hurt others: No Plan Physical Exam 2 Vital Signs: Vital Signs: Last Vital Signs Temp 98.3 F 07/21/24 07:54 Pulse 72 07/21/24 11:31 Resp 14 07/21/24 11:31 BP 157/84 H 07/21/24 11:31 Pulse Ox 96 07/21/24 11:31 O2 Del Method Room Air 07/21/24 11:31 BMI result Body Mass Index 23.3 Appearance: Alert. Oriented X3. No acute distress. Eyes: Pupils equal, round and reactive to light. ENT: Pharynx healing areas no facial swelling, slight bruise noted L lower cheek Neck: Normal inspection. Neck supple. CVS: Normal heart rate and rhythm. Pulses normal. Respiratory: No respiratory distress. Breath sounds normal. Abdomen: Soft and nontender. Skin: Skin warm and dry. Normal skin color. Normal skin turgor. Extremities: No lower extremity edema. No calf ttp Neuro: Oriented X 3. No motor deficit. No sensory deficit. CN2-12 intact Course Course Course Narrative: CTA chest PE ordered ddimer over age adjusted limit Reevaluation(s) Reevaluation #1: nonischemic EKG and trop flat x 2 Medical Decision Making Medical Decision Making [facility] Narrative: 74 yo female with PMH of HLD s/p dental extraction and implants on 07/17 now here with c/o chest heaviness this AM. She denies cough, she is not toxic appearing. At this time will need trop x 2, ddimer, possible CTA. She has no murmur on exam and she has no hx of valvular ds to suggest endocarditis the pain was pressure not pleuritic. Possible atyipcal chest pain, ACS, VTE Differential Diagnosis Differential Diagnoses: The differential diagnosis associated with the presentation includes atyipcal chest pain, ACS, VTE Admission/Observation Consideration of admission/observation: Escalation of care including admission/observation considered work up negative at this time stable for DC asymptomatic negative EKG and neg trop x 2, no VTE, or pneumonia Lab Data [facility] Lab Attestation statement: I reviewed the patient's lab results. 07/21/24 08:16 07/21/24 08:16 Labs: Lab Results 07/21/24 07/21/24 Range/Units 08:16 10:48 WBC 11.0 H (4.8-10.8) X10*3/uL RBC 4.11 L (4.20-5.50) X10*6/uL Hgb 12.8 (12.0-16.0) g/dl Hct 37.4 (37.0-47.0) % MCV 91.0 (80.0-98.0) fL MCH 31.1 (27.0-33.0) pg MCHC 34.2 (31.0-35.0) g/dl RDW 14.3 (11.0-16.0) % Plt Count 151 L (160-400) X10*3/uL MPV Not Reportable Immature Gran % (Auto) 0.7 H (0.0-0.4) % Neut % (Auto) 68.5 (45-73) % Lymph % (Auto) 23.0 (20-40) % [place] % (Auto) 7.1 (2-11) % Eos % (Auto) 0.4 (0-4) % Baso % (Auto) 0.3 (0-2) % Lymph # (Auto) 2.5 (1.2-4.9) X10*3/uL [place] # (Auto) 0.8 (0.1-1.2) X10*3/uL Eos # (Auto) 0.0 (0.0-0.4) X10*3/uL Baso # (Auto) 0.0 (0.0-0.2) X10*3/uL Abs Immat Gran (auto) 0.08 H (0.00-0.03) X10*3/uL Absolute Neuts (auto) 7.6 (2.0-8.3) x10*3/uL Absolute Nucleated RBC 0.000 (0.0-0.012) X10*3/uL Nucleated RBC % (auto) 0.0 (0.0-0.2) /100WBC Smear Tech's Comments VERIFIED ESR 77 H (0-20) MM/HR Hold Purple Top SEE NOTE PT 12.3 (10.9-12.4) SEC INR 1.1 (0.9-1.1) D-Dimer High Sensitivty 475 NG/ML Sodium 140 (135-145) mmol/L Potassium 3.9 (3.3-5.1) mmol/L Chloride 104 (96-108) mmol/L Carbon Dioxide 25 (22-29) mmol/L Anion Gap 15 (12-20) BUN 11 (9-16) mg/dL Creatinine 0.81 (0.5-1.4) mg/dL Estim Creat Clear Calc 55.6 Estimated GFR > 60 Random Glucose 116 H (60-115) mg/dL Calcium 9.6 (8.4-10.2) mg/dL Magnesium 1.9 (1.6-2.6) mg/dL Total Bilirubin 0.8 (0.0-1.0) mg/dL Direct Bilirubin 0.3 (0.0-0.5) mg/dL AST 28 (5-31) U/L ALT 21 (0-31) U/L Alkaline Phosphatase 115 (39-117) U/L Troponin I High Sens < 2.7 < 2.7 (<3.5-17.0) ng/L C-Reactive Protein 3.86 H (< or = 0.50) mg/dL Total Protein 7.5 (6.5-8.0) g/dL Albumin 4.0 (3.5-5.0) g/dL Lipase 15 (8-78) U/L Independent Interpretation I performed an independent interpretation of an: EKG, Plain X-Ray (normal ) and CT Scan (no PE) Interpretation: Rate: 73 Rhythm: NSR [place]: normal Normal P waves. Normal [place]AC[place]. Normal QRS complex. ST T wave : no SANTO, nonspecific ST T waves changes anterior and lateral leads qTC: 423 prior studies: no sig change from 2022 The study has been interpreted contemporaneously by me. . Radiology Impression Discussion of test interpretation with radiology: I have reviewed the radiologist's reading. External Record Review External record reviewed: Outpatient record Discharge Plan Discharge Clinical Impression: Atypical chest pain Patient Disposition: Home, Self-Care Instructions: Chest Pain (ED) Additional Instructions: EKG, repeat troponin negative, labs reassuring CT scan negative for PE return for any worsening symptoms or concern return for fevers, weakness, or any other concerns. Print Language: [place]
[2024-07-21 08:27] LABS: INTERNATIONAL NORM RATIO 1.1 (0.9-1.1); Prothrombin Time 12.3 SEC (10.9-12.4)
--- OUTSIDE RECORDS SUMMARY | 2024-07-21 08:39 | XMS_ITS | Data Portability ---
Author Organization [place] - [facility] [place] [facility] kenny , Main Office - [facility] Address [address] [place] [id number] Care Team Providers Care Flight Data Technician Name Role Phone ROGERS CHAPA Primary Care Provider Assessment Encounter Date Assessment Date Assessment LastModified by Organization Details LastModified Time 06/13/2019 06/13/2019 x-ray- Personally review AP frogleg pelvis, bilateral knees Ap, lat and sunrise and bilateral plumbline legs. Patient with varus deformity bilaterally. Severe arthritic changes in bilateral knees, worse in the right knee, specifically the medial compartment. Bilateral hip with some minot joint space narrowing. [email or web address] Not available 06/13/2019 13:03:18 Plan of Treatment Reminders Order Date Submit Date Provider Last Modified By Organization Details Last Modified Time Details Appointments None recorded. Lab HbA1c (hemoglobin A1c), blood - PLEASE FAX TO THIS IS NOT AN ORDER 2019 020 [email or web address] Not available 0 08:42:21 Referral None recorded. Procedures None recorded. Surgeries total knee arthroplast y (SURG) 2019 020 rruark Not available 0 08:42:21 Imaging XR, knee, 4 or more view 2019 rruark [facility], [address] [place] [address], [address], 0 08:42:21 XR, bone length 2019 020 rruark [facility], [address] [place] [address], [place], [address], 0 08:42:21 XR, pelvis, 1 or 2 view 2019 020 rruark [facility], [address] [place], [address], 0 08:42:21 Medication Orders None recorded. Patient TargetsNo targets recorded. Patient Instructions Encounter Date Encounter Id Patient Instructions Last Modified By Organization Details Last Modified Time 06/13/2019 [id number] preoperative clearance* - MEDICAL CLEARANCE LABS MUST BE PERFORMED WITH IN 30 DAYS OF SURGERY RECOMMENDED LABS: CBC W/ DIFF, URINALYSIS, CHEM 1 (CMP), PTT/PT/PT-INR (IF ON ANTICOAGULANT THERAPY), CHEST X-RAY, EKG AND OFFICE NOTE OR LETTER STATING PATIENT IS CLEAR FOR SURGICAL PROCEDURE. PLEASE FAX RESULTS TO DR. VELASQUEZ AT [phone] ONCE COMPLETE. [email or web address] Not available 06/14/2019 08:42:21 cardiac clearanc e* - CARDIAC CLEARANCE PATIENT IS SCHEDULED FOR A TOTAL KNEE REPLACEMENT. PLEASE SEND ANY JULIO OPERATIVE RECOMMENDATIONS LETTER OF CARDIAC CLEARANCE AND A COPY OF PATIENT'S LAST EKG AND ANY CARDIAC TESTING PERFORMED WITH IN THE PAST YEAR TO [phone]. PATIENT MUST BE OFF ANTICOAGULANT THERAPY 7 DAYS PRIOR TO DATE OF SURGERY [email or web address] Not available 06/14/2019 08:42:21 Reason for Referral None Reported. Results Created Date Observation Date Name Description Value Unit Range Abnormal Flag Note LastModifiedBy Organization Detail LastModifiedTime Result Notes None recorded. Procedures Surgical History Date Name Laterality Status Provider Name and Address Organization Details Recorded Time Cholecystectomy completed Shawanda Archibald [facility] 06/12/2019 15:42:10 Appendectomy completed Shawanda Singh [facility] 06/12/2019 15:42:18 excision of laryngeal polyp completed Shawanda Singh [facility] 06/12/2019 15:42:41 biopsy completed Shawandajamal Singh [facility] 06/12/2019 15:43:31 Imaging Results None recorded. Procedure Notes None recorded. Medical Equipment None Reported. Allergies Allergen ID Allergen Name Allergen Category Reaction Reaction Severity Criticality Documentation Date Start Date Code Code System Note Provider Name and Address Organization Details Recorded Time 650336 Product containin g penicilli n (product) medicatio n Not available Not available Not available 06/12/2019 03317 8001 SNOMED Not Available Not Available Not Available Medications Name Sig Start Date Stop Date Status Note LastModified by Organization Details LastModified Time metformin 500 mg tablet 06/13 completed Not Available Not Available Not Available bupropion HCl SR 150 mg tablet,12 hr sustained-r elease active Not Available Not Available Not Available levothyroxi ne 137 mcg tablet active Not Available Not Available Not Available nystatin 100,000 unit/mL oral suspension 06/13 completed Not Available Not Available Not Available prednisone 10 mg tablet TAKE 2 TABS ONCE A DAY FOR 3 DAYS THEN 1 TAB ONCE A DAY FOR 4 DAYS 06/13 completed Not Available Not Available Not Available azithromyci n 250 mg tablet 06/13 completed Not Available Not Available Not Available alprazolam 1 mg tablet TAKE 2 TABLETS BY MOUTH TWICE A DAY NEEDED FOR ANXIETY active Not Available Not Available No t Available fluconazole 150 mg tablet 06/13 completed Not Available Not Available Not Available meloxicam 15 mg tablet 06/13 completed Not Available Not Available Not Available promethazin e 6.25 mg-codeine 10 mg/5 mL syrup 06/13 completed Not Available Not Available Not Available benzonatate 100 mg capsule 06/13 completed Not Available Not Available Not Available fluvoxamine 100 mg tablet TAKE 2 TABLETS BY MOUTH TWICE A DAY active Not Available Not Available No t Available doxycycline monohydrate 100 mg capsule 06/13 completed Not Available Not Available Not Available oseltamivir 75 mg capsule 06/13 completed Not Available Not Available Not Available triamcinolo ne acetonide 0.1 % topical ointment 06/13 completed Not Available Not Available Not Available levothyroxi ne 150 mcg tablet TAKE 1 TABLET BY MOUTH DAILY IN THE MORNING ON AN EMPTY STOMACH 06/13 completed Not Available Not Available Not Available mirtazapine 45 mg tablet active Not Available Not Available Not Available montelukast 10 mg tablet TAKE 1 TABLET BY MOUTH EVERY DAY IN THE EVENING active Not Available Not Available No t Available hydroxyzine HCl 25 mg tablet 06/13 completed Not Available Not Available Not Available prednisone 5 mg tablets in a dose pack 06/13 completed Not Available Not Available Not Available levofloxaci n 500 mg tablet 06/13 completed Not Available Not Available Not Available zolpidem ER 12.5 mg tablet,exte nded release,mul tiphase TAKE 1 TABLET BY MOUTH AT BEDTIME active Not Available Not Available No t Available Xanax active Not Available Not Availa ble Not Available Nexium active Not Available Not Availa ble Not Available Tylenol 8 Hour active Not Available Not Available Not Available Flector 1.3 % transdermal 12 hour patch APPLY 1 PATCH TOPICALLY TWICE A DAY 06/13 completed Not Available Not Available Not Available diclofenac 1 % topical gel 06/13 completed Not Available Not Available Not Available Prevnar 13 (PF) 0.5 mL intramuscul ar syringe TO BE ADMINISTE RED BY PHARMACIS T FOR IMMUNIZAT ION 06/13 completed Not Available Not Available Not Available B12 active Not Available Not Availa ble Not Available Rymed (dexchlorph eniramine-p henylephrin e) 2 mg-10 mg tablet 06/13 completed Not Available Not Available Not Available Fluzone Quad (PF) 60 mcg (15 mcg x 4)/0.5 mL IM syringe TO BE ADMINISTE RED BY [employer] T FOR IMMUNIZAT ION 06/13 completed Not Available Not Available Not Available Vitals Date Recorded Body height Body mass index (BMI) Body weight Body temperature Heart rate Systolic blood pressure Diastolic blood pressure Provider Name and Address Organization Details Last Updated DateTime 0 162.56 cm 26.2 kg/m2 78593.9 1 g 97.4 [degF] 88 /min 129 mm[Hg] 81 mm[Hg] Shawanda Singh [facility] 0 09:05:31 Social History Question Answer Notes LastModified by Organizat ion Details LastModified Time Tobacco Smoking Status Never Smoker Shawanda shay [facility], 06/12/2019 15:40:05 Do You Have An Advance Directive? No Information not available 06/12/2019 What Is Your Level Of Alcohol Consumption? None Information not available 06/12/2019 Is Blood Transfusion Acceptable In An Emergency? Yes Information not available 06/12/2019 How Much Tobacco Do You Chew? None Information not available 06/12/2019 Are You Currently Employed? No Information not available 06/12/2019 Do You Or Have You Ever Used E-cigarettes Or Vape? Never Used Electronic Cigarettes Information not available 06/12/2019 What Is Your Occupation? Retired Information not available 06/12/2019 Which Of Your Hands Is Dominant? Right Information not available 06/12/2019 Single Or Multi-level Home/work? Single Level Home Information not available 06/12/2019 Live Alone Or With Others? With Others Information not available 06/12/2019 [employer] Preference [employer] Information not available 06/12/2019 Ethnic Identity Informati on not available 06/12/2019 Diet Type Diabetic Information no t available 06/12/2019 Education Level College Informati on not available 06/12/2019 Current Resident Of Care Home Or Rehab Facility No Information not available 06/12/2019 If Yes, Name And Phone Number Of Facility No Information not available 06/12/2019 Marital Status Informatio n not available 06/12/2019 How Many Children Do You Have? 2 Information not available 06/12/2019 Do You Or Have You Ever Used Smokeless Tobacco? Never Used Smokeless Tobacco Information not available 06/12/2019 How Much Tobacco Do You Smoke? No Information not available 06/12/2019 General Stress Level Low Information not available 06/12/2019 Sex: Unknown Functional Status Question Answer Note LastModified by Organization D etails LastModified Time Are you able to care for yourself? Yes Information n ot available 06/12/2019 What is your exercise level? None Information not available 06/12/2019 Mental Status None recorded. Family History Nothing Reported. Medical History Condition Response Pancreatitis N HEME - Anemia N Gout N Hyperthyroidism N Rheumatoid arthritis N Osteoarthrosis N Irritable bowel syndrome N HEENT - Wears corrective lenses Y Depression Y COPD N Pneumonia N History of head and neck tumor N Peptic ulcer disease N NEURO - Cerebral palsy N Skin infection N Active aids N Mitral valve prolapse N Renal failure N HIV positive N GI - GERD N Joint injury N Hypoparathyroidism N Hypercholesterolemia N MS - Fracture N Fibromyalgia N Cerebrovascular accident N PSYCHE - Claustrophobia N Neuromuscular disease N Poliomyelitis / post polio N ENDOCRINE - Obesity N Hearing impairment N Dysvascular amputation LE N Other diagnosis N Anxiety disorder Y Deformity N CHEST - Sleep apnea N Crohn's disease N Pulmonary embolism N Chronic venous stasis disease N Psychosis N Coagulopathy N Cardiac valvular disease N Asthma N Blood clotting disorder N Are you under pain mgmt treatment N Fragility fracture N Vertigo N Hepatitis N Neuropathy N Coronary artery disease N Pressure sore N Diabetes Type II (NIDDM) Y Skin ulceration N Bipolar disorder N Legally blind N Glaucoma N Hypothyroidism Y Sinusitis / sinus infection N Pacemaker N Peripheral vascular disease N Cystic fibrosis N Cholecystitis N Sickle cell N VASCULAR - Deep venous thrombosis N Osteomyelitis N SKIN - Rash N INFECTIOUS - Current active infection N Previous myocadial infarction N Heart murmur N Itp / ttp N Congestive heart failure N Lupus Arthritis N Skin bruising N HEART - Arrhythmia N Diabetes Type I (IDDM) N Chemically anticoagulated N Dental caries / gingivitis N Fracture non-union N Dysvascular gangrene N - Cystitis N Renal dialysis N Diverticulitis N Dementia N Ulcerative colitis N Seizure disorder N MISC - Cancer Y Organ transplant N Hypertension N Osteoporosis N Gynecological HistoryNo gynecological history recorded. Obstetrics History GPAL:G 0 P 0 0 0 0 Past Encounters Encounter ID Performer Location Encounter Start Date Encounter Closed Date Diagnosis/Indication Diagnosis SNOMED-CT Code Diagnosis ICD10 Code Diagnosis Note [id number] GIANNA MIKE [address] [address] 06/13/2019 08:40:13 06/13/2019 09:58:34 Knee pain 03214074 M25.561 M25.562 Osteoarthr itis of knee 302416795 M17.11 Patient with right and left knee osteoarthr itis. Patient states right knee is more painful and symptomati c. She has tried conservati ve therapy and it is no longer effective for her. She is interested in surgical interventi on at this point. We had a long discussion regarding risks and benefits of surgery. Patient would like to proceed with total right knee arthroplas ty in August/September time frame. She will need medical and cardiac clearance. AA Health Concerns Section Related Observation LastModified by Organization Detai ls LastModified Time None Recorded Concern Status LastModified by Organization Details LastModified Time None Recorded Advance Directives Directive N: Payers Encounter Date Sequence Insurance Name Policy Number Policy Ahn Covered Member ID Ahn Member ID Guarantor Name 06/13/2019 1 [place] Yuridia Allison [id number] Yuridia Allison 06/13/2019 2 [employer] (INDEMNITY) [id number] González Allison [id number] Yuridia Allison Notes Date Note Type Note Provider Name and Address Organization Details Recorded Time 06/13/2019 text/html Patient is a 69 year old female who is here today for initial evaluation for bilateral knee pain. Patient states around she was walking and injured her right meniscus. She subsequently had right meniscus removed. States since then she has had significant pain in the right and left knee. She states her RIGHT knee is worse than the left knee but pain in both knees is constant, worse after a long day of activities. Admits to stiffness and difficulty getting going in the AM. Denies any significant weakness, giving way or swelling. Patient has tried physical therapy in the past with minimal improvement. She has been having steroid injections about every 3 months that were helping for a long time. More recently the injections haven't been lasting as long and she has severe pain before the 3 months cheryl. She also takes tyelnol arthritis for her pain and she is unsure if this is realy helping her at this point. She ambulates with a limp but with no assistive device. Denies any hip, back or groin pain. 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 She was diagnosed with diabetes previously but states she is no longer diabetic, last A1c was 5.0. She has seen a flavor extractor before and was cleared. She has family history of heart disease and CABG. Denies tobacco use. GIANNA MIKE [address] [place], [address], [place] - [facility], 06/13/2019 13:07:00 OBGyn Episode No OBEpisode recorded.
--- OUTSIDE RECORDS SUMMARY | 2024-07-21 08:39 | XMS_ITS | Encounter Summary ---
Author Organization [facility] Address [address] [place] [address] Care Team Providers Care Engine Lathe Set Up Operator Name Role Phone Physician, Pcp Unknown Primary Care Provider Elyssa vailable Encounter Details Date Type Department Care Team (Late st Contact Info) Description 07/02/2024 Lab Requisition [facility] - Main Lab [address] [facility] [place] [address] Bernard Santoro MD [address] [facility] [address] [place] [address] Personal history of malignant neoplasm of bladder Social History Tobacco Use Types Packs/Day Years Used Date Smoking Tobacco: Never Assessed Comments Unknown Sex and Gender Information Value Date Recorded Sex Assigned at Not on file Legal Sex Female 9:02 AM EST Gender Identity Not on file Sexual Orientation Not on file documented as of this encounter Plan of Treatment Not on file documented as of this encounter Procedures Procedure Name Priority Date/Time Associated Diagnosis Comments AP OUTSIDE CONSULT Routine 06/26/2024 12 :00 AM EST Personal history of malignant neoplasm of bladder documented in this encounter Results * Anatomic pathology outside consult (06/26/2024 12:00 AM EST) Final Diagnosis A. Urine, Voided, ([id number]): Negative for high grade urothelial carcinoma. Results of UroVysion fluorescence in situ hybridization (FISH) testing: CEP3: Normal CEP7: Normal CEP17: Normal LSI 9p21: Normal Interpretation: Normal profile Controls stained appropriately. Note: The results are intended as a screening device and should be interpreted in association with other clinical and pathological findings. 07/10/2024 10:59 AM EST [facility] Clinical Information History of bladder neoplasm (malignant) Z85.51 Urine Cytology/FISH (now) 07/10/2024 10:[address] [facility] Gross Description A. Urine, Voided, ([id number]): Received one ThinPrep slide for cytology and one ThinPrep slide for UroVysion FISH 07/10/2024 10:59 AM [facility] Disclaimer Unless otherwise specified, all tissue is 10% NB formalin fixed and paraffin embedded. Technical pathology services provided by [facility] at [address] [facility] [address], [place] [address] (CLIA #[id number]/Re Mancilla MD, Proofer) 07/10/2024 10:59 AM [facility] Tissue Urine specimen from urethra / Unknown 06/26/2024 07/02/2024 9:09 AM EST us Bernard Santoro MD LAB PATHOLOGY ORDERABLES Final Result [facility] [address] [place] [address], documented in this encounter Visit Diagnoses Diagnosis Personal history of malignant neoplasm of bladder documented in this encounter Care Teams Engine Lathe Set Up Operator Relationship Specialty Start Date End Date Physician, Pcp Unknown PCP - General 07/03/24 07/03/24 documented as of this encounter
--- OUTSIDE RECORDS SUMMARY | 2024-07-21 08:39 | XMS_ITS | Clinical Summary ---
Author Organization 299 [facility] Address [address] [place] [address] Phone Care Team Providers Care Die Machine Operator Name Role Phone Unavailable Primary Care Provider Unavailabl e Encounters Date Type Department Care Team Description 07/02/2024 Lab Requisition [facility] - Main Lab [address] [facility] [place] [address] Bernard Santoro MD Personal history of malignant neoplasm of bladder from Last 3 Months Social History Tobacco Use Types Packs/Day Years Used Date Smoking Tobacco: Never Assessed Comments Unknown Sex and Gender Information Value Date Recorded Sex Assigned at Not on file Legal Sex Female 9:02 AM EST Gender Identity Not on file Sexual Orientation Not on file Plan of Treatment Health Maintenance Due Date Last Done Comments Breast Cancer Screening 1950 DTaP,Tdap,and Td Vaccines (1 - Tdap) 1970 Pneumococcal Vaccine: 50+ Ye ars (1 of 1 - PCV) 2001 Zoster Vaccines (1 of 2) 2001 COVID-19 Vaccine ( - 2023-2 5 season) 2024 Influenza Vaccine (#1) 2024 Colorectal Cancer Screening: Colonoscopy 07/02/2024 Depression Screening 07/02/2024 Falls Risk Assessment 07/02/2024 Hepatitis C Screening 07/02/2024 Medicare Annual Wellness Visit 07/02/2024 Osteoporosis Screening (Bone Density Screening) 07/02/2024 Social Influencers of Health Screening 07/02/2024 RSV Immunization Patients 60 + Years Old (1 - 1-dose 75+ series) 2026 HIB Vaccines Aged Out No longer eligi ble based on patient's age to complete this topic HPV Vaccines Aged Out No longer eligi ble based on patient's age to complete this topic Hepatitis A Vaccines Aged Out No long er eligible based on patient's age to complete this topic Hepatitis B Vaccines Aged Out No long er eligible based on patient's age to complete this topic IPV Vaccines Aged Out No longer eligi ble based on patient's age to complete this topic MMR Vaccines Aged Out No longer eligi ble based on patient's age to complete this topic Meningococcal ACWY Vaccine Aged Out N o longer eligible based on patient's age to complete this topic Meningococcal B Vacine Aged Out No lo nger eligible based on patient's age to complete this topic RSV Immunization Patients Un vipul 20 months Aged Out No longer eligible b ased on patient's age to complete this topic Varicella Vaccines Aged Out No longer eligible based on patient's age to complete this topic Procedures Procedure Name Priority Date/Time Associated Diagnosis Comments AP OUTSIDE CONSULT Routine 06/26/2024 12 :00 AM EST Personal history of malignant neoplasm of bladder from Last 3 Months Results * Anatomic pathology outside consult (06/26/2024 12:00 AM EST) Final Diagnosis A. Urine, Voided, ([id number]): Negative for high grade urothelial carcinoma. Results of UroVysion fluorescence in situ hybridization (FISH) testing: CEP3: Normal CEP7: Normal CEP17: Normal LSI 9p21: Normal Interpretation: Normal profile Controls stained appropriately. Note: The results are intended as a screening device and should be interpreted in association with other clinical and pathological findings. 07/10/2024 10:59 AM [facility] Clinical Information History of bladder neoplasm (malignant) Z85.51 Urine Cytology/FISH (now) 07/10/2024 10:59 AM [facility] Gross Description A. Urine, Voided, ([id number]): Received one ThinPrep slide for cytology and one ThinPrep slide for UroVysion FISH 07/10/2024 10:59 AM [facility] Disclaimer Unless otherwise specified, all tissue is 10% NB formalin fixed and paraffin embedded. Technical pathology services provided by [facility] at [address] [place] [address] [address], [place] [address] (CLIA #[id number]/Re Mancilla MD, Music Therapy Specialist) 07/10/2024 10:59 AM EST [facility] Tissue Urine specimen from urethra / Unknown 06/26/2024 07/02/2024 9:09 AM EST us Bernard Santoro MD LAB PATHOLOGY ORDERABLES Final Result [facility] [address] [place] [address], [place] [phone] from Last 3 Months Insurance [employer] MEDICARE ADVANTAGE MEDICARE
[2024-07-21 08:42] LABS: Basophils Percent Auto 0.3 % (0-2); Eosinophils Percent Auto 0.4 % (0-4); Hematocrit 37.4 % (37.0-47.0); Hemoglobin 12.8 g/dl (12.0-16.0); Imm Gran Abs Auto 0.08 X10*3/uL (0.00-0.03); Imm Gran Pct Auto 0.7 % (0.0-0.4); Lymphocytes Absolute Auto 2.5 X10*3/uL (1.2-4.9); MANUAL DIFF FLAG SCAN; Mean Corpuscular HGB Conc 34.2 g/dl (31.0-35.0); Mean Corpuscular Hemoglobin 31.1 pg (27.0-33.0); Monocytes Absolute Auto 0.8 X10*3/uL (0.1-1.2); Monocytes Percent Auto 7.1 % (2-11); Neutrophils Absolute Auto 7.6 x10*3/uL (2.0-8.3); Neutrophils Percent Auto 68.5 % (45-73); PLT CLUMP 1; Red Blood Count 4.11 X10*6/uL (4.20-5.50); Red Cell Distribution Width 14.3 % (11.0-16.0); SCAN SMEAR FLAG 1
[2024-07-21 08:53] LABS: Alanine Aminotransferase 21 U/L (0-31); Alkaline Phosphatase 115 U/L (39-117); Anion Gap 15 (12-20); Aspartate Amino Transferase 28 U/L (5-31); Bilirubin Direct 0.3 mg/dL (0.0-0.5); Bilirubin Total 0.8 mg/dL (0.0-1.0); Blood Urea Nitrogen 11 mg/dL (9-16); Calcium 9.6 mg/dL (8.4-10.2); Carbon Dioxide 25 mmol/L (22-29); Chloride 104 mmol/L (96-108); Creatinine Clr Calc Pharmacy 55.6; Estimated Glomerular Filt Rate > 60; Glucose Random 116 mg/dL (60-115); Lipase 15 U/L (8-78); Magnesium 1.9 mg/dL (1.6-2.6); Potassium 3.9 mmol/L (3.3-5.1); Sodium 140 mmol/L (135-145); Total Protein 7.5 g/dL (6.5-8.0)
[2024-07-21 09:10] LABS: Troponin-I High Sensitivity < 2.7 ng/L (<3.5-17.0)
[2024-07-21 09:13] LABS: Platelet Count 151 X10*3/uL (160-400); SLIDE REVIEW VERIFIED
[2024-07-21 10:40] LABS: D Dimer High Sensitivity 475 NG/ML
[2024-07-21 10:51] LABS: C Reactive Protein 3.86 mg/dL (< or = 0.50)
[2024-07-21 11:17] LABS: Troponin-I High Sensitivity < 2.7 ng/L (<3.5-17.0)
[2024-07-21 11:31] VITALS: BP 157/84; PULSE 72; RESP 14; O2SAT 96
[2024-07-21 11:41] LABS: Erythrocyte Sedimentation Rate 77 MM/HR (0-20)
[2024-07-21 14:43] VITALS: BP 155/84; PULSE 82; RESP 20; TEMP 36.6; O2SAT 95
== END 2024-07-21 15:00 | disposition home or self-care (01) ==
PROVIDERS: Emergency Provider Emergency Medicine; PCP Family Medicine
DX: R07.89 Other chest pain (principal); R06.00 Dyspnea, unspecified; E78.5 Hyperlipidemia, unspecified
CPT/HCPCS: 36415; 71045; 71275; 80048; 80076; 83690; 83735; 84484; 85025; 85379; 85610; 85652; 86140; 93005; 99283; 99284

== ENCOUNTER → 2024-07-21 07:36 | Outpatient (BNV) | payer MEDICARE, SELFPAY | PROVIDERS: Emergency Provider Emergency Medicine; PCP Family Medicine; Visit Provider Internal Medicine Cardiovascular Disease | DX: R07.9 Chest pain, unspecified (principal); R94.31 Abnormal electrocardiogram [ECG] [EKG] | CPT/HCPCS: 93010 ==

== ENCOUNTER → 2024-07-21 08:00 | Outpatient (BNV) | payer MEDICARE, SELFPAY | PROVIDERS: Emergency Provider Emergency Medicine; PCP Family Medicine; Visit Provider Radiology Diagnostic Radiology | DX: R07.9 Chest pain, unspecified (principal); R79.1 Abnormal coagulation profile | CPT/HCPCS: 71045; 71275 ==